=== PATIENT | female | born 1945 | race Caucasian/White ===

== ENCOUNTER 2021-05-26 14:03 | Outpatient (CLI) | payer OTHER | END 2021-05-26 14:12 | disposition home or self-care (01) | LOC: RAD 14:03 | PROVIDERS: ATTEND Ophthalmology | DX: I15.8 Other secondary hypertension (principal); I10 Essential (primary) hypertension ==

== ENCOUNTER → 2021-08-19 | Outpatient (CLI) | payer OTHER | END | disposition home or self-care (01) | LOC: RAD 13:43 | PROVIDERS: ATTEND Family Medicine | DX: M62.838 Other muscle spasm (principal) ==

== ENCOUNTER 2021-10-04 15:49 | Emergency (ER) | payer OTHER ==
[~2021-10-04] VITALS: Ht 170.2 cm; Wt 81.6 kg
[2021-10-04] MEDS ORDERED: AVAPRO75 MG PO (16:37)
[2021-10-04] MEDS ORDERED: CARDURA1 MG PO (16:37)
[2021-10-04] MEDS ORDERED: AVAPRO300 MG PO (16:37)
[2021-10-04] MEDS ORDERED: MULTI VITAMIN1 EACH PO (16:38)
[2021-10-04] MEDS ORDERED: CHILDREN'S ASPI81 MG PO (16:38)
== END 2021-10-04 18:47 | disposition home or self-care (01) ==
LOC: ER 15:49
DX: R00.2 Palpitations (principal); I10 Essential (primary) hypertension; J45.909 Unspecified asthma, uncomplicated; E05.90 Thyrotoxicosis, unspecified without thyrotoxic crisis or storm